=== PATIENT | female | born 1960 | race African-American/Black ===

== ENCOUNTER 2016-08-20 22:55 | Inpatient (IN) | payer MEDICAID, OTHER ==
[~2016-08-20] VITALS: Ht 167.6 cm; Wt 70.4 kg
[~2016-08-20 22:55] MED LIST: AMLO-512 PO; ASPI81TA42 PO; ATEN100T PO; HYDR25TA PO; LEVO75 PO
[2016-08-20] MEDS ORDERED: SODIUM CHLORIDE 0.9% 1,000 ML IV ONE (23:15)
[2016-08-20 23:29] LABS: BASOPHILS # (AUTO) 0.08 K/uL (0.00-0.20); BASOPHILS % (AUTO) 0.5 % (0.0-2.0); EOSINOPHILS # (AUTO) 0.13 K/uL (0.00-0.70); EOSINOPHILS % (AUTO) 0.82 % (1.0-6.0); HEMATOCRIT 50.4 % (36-46); HEMOGLOBIN 15.5 g/dL (12.0-16.0); LYMPHOCYTES # (AUTO) 3.5 K/uL (1.0-4.8); LYMPHOCYTES % (AUTO) 22.5 % (22.0-44.0); MEAN CORPUSCULAR HEMOGLOBIN 23.5 pg (26.0-34.0); MEAN CORPUSCULAR HGB CONC 30.9 G/dL (31.0-37.0); MEAN CORPUSCULAR VOLUME 76 fL (80-100); MONOCYTES # (AUTO) 0.6 K/uL (0.1-1.0); MONOCYTES % (AUTO) 3.6 % (2.0-9.0); NEUTROPHILS # (AUTO) 11.3 K/uL (1.8-7.7); NEUTROPHILS % (AUTO) 72.6 % (40.0-70.0); PLATELET COUNT (AUTO) 269 K/uL (150-450); RED BLOOD CELL COUNT(AUTO) 6.62 MIL/uL (4.00-5.20); RED CELL DISTRIBUTION WIDTH 14.3 % (11.5-14.5); WHITE BLOOD COUNT (AUTO) 15.6 K/uL (4.5-11.0)
[2016-08-20 23:40] LABS: PROTHROMBIN TIME 10.3 SEC (9.4-11.6)
[2016-08-20] MEDS ORDERED: ONDANSETRON HCL 4 MG/2 ML VIAL IVP ONE (23:45)
[2016-08-20] MEDS ORDERED: MECLIZINE HCL 25 MG TABLET PO ONE (23:45)
[2016-08-20 23:55] LABS: ALANINE AMINOTRANSFERASE 20 U/L (12-78); ALBUMIN 4.3 g/dL (3.4-5.0); ASPARTATE AMINOTRANSFERASE 20 U/L (15-37); BILIRUBIN,TOTAL 0.4 mg/dL (0.1-1.0); CALCIUM, TOTAL 9.7 mg/dL (8.8-10.5); CARBON DIOXIDE 27 mmol/L (22-29); CREATININE 0.87 mg/dL (0.60-1.30); GLOMERULAR FILTR. RATE CALC > 60 mL/min (>60); THYROID STIMULATING HORMONE 0.52 uIU/mL (0.36-3.74); UREA NITROGEN, BLOOD 11 mg/dL (7-18)
[2016-08-20 23:58] LABS: RBC MORPHOLOGY COMMENT ABNORMAL RBC MORPH
[2016-08-21 00:09] LABS: ANION GAP 15 mmol/L (8-16); CHLORIDE 100 mmol/L (98-107); SODIUM SERUM 142 mmol/L (136-145)
[2016-08-21 00:10] LABS: POTASSIUM 2.5 mmol/L (3.5-5.1)
[2016-08-21] MEDS ORDERED: POTASSIUM CHLORIDE 20 MEQ ER TABLET PO ONE (00:15)
[2016-08-21] MEDS: POTASSIUM CHL 10 MEQ/WATER 50 ML IV SCH ×4 (00:49→05:28)
[2016-08-21] MEDS ORDERED: SODIUM CHLORIDE 0.9% 1,000 ML IV ONE (01:45)
[2016-08-21] MEDS ORDERED: LEVOFLOXACIN 750 MG/D5% WATER 150 ML IV ONE (01:45)
[2016-08-21 02:17] LABS: APPEARANCE,URINE CLEAR (CLEAR); GLUCOSE, URINE (UA) NEGATIVE (NEGATIVE); KETONES,URINE NEGATIVE (NEGATIVE); LEUKOCYTE ESTERASE ,URINE TRACE (NEGATIVE); OCCULT BLOOD,URINE NEGATIVE (NEGATIVE); PH,URINE 7.5 (5.0-8.0); PROTEIN,URINE NEGATIVE (NEGATIVE)
[2016-08-21 02:18] LABS: ADD UA MICROSCOPIC YES
[2016-08-21 02:21] LABS: RBC,URINE 0-2 /HPF (0-2); SQUAMOUS EPITHELIAL CELL,UR Moderate /LPF (None Seen)
[2016-08-21] MEDS ORDERED: ASPIRIN 81 MG CHEWABLE TABLET PO ONE (02:45)
[2016-08-21] MEDS ORDERED: ACETAMINOPHEN 500 MG TABLET PO ONE (03:15)
[2016-08-21] MEDS ORDERED: MAGNESIUM HYDROXIDE SUSPENSION 30 ML UDCUP PO PRN (04:00)
[2016-08-21] MEDS ORDERED: OxyCODONE HCL/ACETAMINOPHEN 5-325 MG TABLET PO PRN (04:00)
[2016-08-21] MEDS ORDERED: ACETAMINOPHEN 325 MG TABLET PO PRN (04:00)
[2016-08-21] MEDS ORDERED: 0.9% SODIUM CHLORIDE 10 ML SYRINGE IVP PRN (04:00)
[2016-08-21] MEDS ORDERED: ONDANSETRON HCL 4 MG/2 ML VIAL IVP PRN (04:00)
[2016-08-21] MEDS ORDERED: SODIUM CHLORIDE 0.9% 500 ML IV ONE (05:45)
[2016-08-21] MEDS: LEVOTHYROXINE SODIUM 75 MCG TABLET PO SCH (06:30)
[2016-08-21 08:09] LABS: BASOPHILS % (AUTO) 0.7 % (0.0-2.0); EOSINOPHILS # (AUTO) 0.15 K/uL (0.00-0.70); EOSINOPHILS % (AUTO) 1.05 % (1.0-6.0); HEMATOCRIT 42.2 % (36-46); HEMOGLOBIN 12.9 g/dL (12.0-16.0); LYMPHOCYTES # (AUTO) 3.8 K/uL (1.0-4.8); LYMPHOCYTES % (AUTO) 27.3 % (22.0-44.0); MEAN CORPUSCULAR HEMOGLOBIN 23.3 pg (26.0-34.0); MEAN CORPUSCULAR HGB CONC 30.7 G/dL (31.0-37.0); MEAN CORPUSCULAR VOLUME 76 fL (80-100); MONOCYTES # (AUTO) 0.8 K/uL (0.1-1.0); MONOCYTES % (AUTO) 5.6 % (2.0-9.0); NEUTROPHILS # (AUTO) 9.1 K/uL (1.8-7.7); NEUTROPHILS % (AUTO) 65.4 % (40.0-70.0); PLATELET COUNT (AUTO) 250 K/uL (150-450); RED BLOOD CELL COUNT(AUTO) 5.54 MIL/uL (4.00-5.20); RED CELL DISTRIBUTION WIDTH 14.1 % (11.5-14.5); WHITE BLOOD COUNT (AUTO) 13.9 K/uL (4.5-11.0)
[2016-08-21 08:14] LABS: ANION GAP 9 mmol/L (8-16); CALCIUM, TOTAL 7.6 mg/dL (8.8-10.5); CARBON DIOXIDE 27 mmol/L (22-29); CHLORIDE 108 mmol/L (98-107); CREATININE 0.67 mg/dL (0.60-1.30); GLOMERULAR FILTR. RATE CALC > 60 mL/min (>60); POTASSIUM 3.5 mmol/L (3.5-5.1); SODIUM SERUM 144 mmol/L (136-145); UREA NITROGEN, BLOOD 6 mg/dL (7-18)
[2016-08-21] MEDS: DOCUSATE SODIUM 100 MG CAPSULE PO SCH ×2 (08:24→21:04)
[2016-08-21] MEDS: MECLIZINE HCL 25 MG TABLET PO SCH ×4 (08:24→21:04)
[2016-08-21] MEDS: AmLODIPine BESYLATE 10 MG TABLET PO SCH (08:24)
[2016-08-21] MEDS: PANTOPRAZOLE SODIUM 40 MG/VIAL IVP SCH (08:24)
[2016-08-21 08:25] LABS: RBC MORPHOLOGY COMMENT ABNORMAL RBC MORPH
[2016-08-21] MEDS: ASPIRIN 81 MG EC TABLET PO SCH (08:25)
[2016-08-21] MEDS: ATENOLOL 100 MG TABLET PO SCH (08:25)
[2016-08-21 11:31] VITALS: BP 117/71
[2016-08-21 14:18] VITALS: BP 114/70
[2016-08-21 17:09] VITALS: BP 116/64
[2016-08-21] MEDS: OxyCODONE HCL/ACETAMINOPHEN 5-325 MG TABLET PO PRN (17:54)
[2016-08-21] MEDS ORDERED: PNEUMOCOCCAL VACCINE POLYVALENT 0.5 ML VIAL [PPSV23] IM ONE (18:00)
[2016-08-21 21:45] VITALS: BP 103/55
[2016-08-21 23:31] VITALS: BP 124/60
[2016-08-22 02:40] VITALS: BP 123/65
[2016-08-22] MEDS: OxyCODONE HCL/ACETAMINOPHEN 5-325 MG TABLET PO PRN ×2 (02:44→09:56)
[2016-08-22 04:12] VITALS: BP 101/55
[2016-08-22] MEDS: LEVOTHYROXINE SODIUM 75 MCG TABLET PO SCH (06:00)
[2016-08-22 07:04] LABS: BASOPHILS # (AUTO) 0.06 K/uL (0.00-0.20); BASOPHILS % (AUTO) 0.5 % (0.0-2.0); EOSINOPHILS # (AUTO) 0.43 K/uL (0.00-0.70); HEMATOCRIT 42.1 % (36-46); HEMOGLOBIN 12.9 g/dL (12.0-16.0); LYMPHOCYTES # (AUTO) 4.4 K/uL (1.0-4.8); MEAN CORPUSCULAR HEMOGLOBIN 23.8 pg (26.0-34.0); MEAN CORPUSCULAR HGB CONC 30.7 G/dL (31.0-37.0); MEAN CORPUSCULAR VOLUME 77 fL (80-100); MONOCYTES # (AUTO) 0.9 K/uL (0.1-1.0); MONOCYTES % (AUTO) 7.1 % (2.0-9.0); NEUTROPHILS % (AUTO) 55.1 % (40.0-70.0); PLATELET COUNT (AUTO) 254 K/uL (150-450); RED BLOOD CELL COUNT(AUTO) 5.43 MIL/uL (4.00-5.20); RED CELL DISTRIBUTION WIDTH 14.3 % (11.5-14.5); WHITE BLOOD COUNT (AUTO) 12.8 K/uL (4.5-11.0)
[2016-08-22 07:50] VITALS: BP 103/69
[2016-08-22 07:56] LABS: CALCIUM, TOTAL 8.4 mg/dL (8.8-10.5); CREATININE 1.13 mg/dL (0.60-1.30); POTASSIUM 3.5 mmol/L (3.5-5.1)
[2016-08-22] MEDS: PANTOPRAZOLE SODIUM 40 MG/VIAL IVP SCH (09:05)
[2016-08-22] MEDS: ATENOLOL 100 MG TABLET PO SCH (09:52)
[2016-08-22] MEDS: DOCUSATE SODIUM 100 MG CAPSULE PO SCH (09:52)
[2016-08-22] MEDS: AmLODIPine BESYLATE 10 MG TABLET PO SCH (09:52)
[2016-08-22] MEDS: MECLIZINE HCL 25 MG TABLET PO SCH ×2 (09:52→12:02)
[2016-08-22] MEDS: ASPIRIN 81 MG EC TABLET PO SCH (09:53)
[2016-08-22 11:29] VITALS: BP 113/64
[2016-08-22] MEDS ORDERED: MECL12.585 PO (14:32)
== END 2016-08-22 14:52 | disposition home or self-care (01) | DRG 425 ==
LOC: EMS 22:56 → AHU 08-21 09:18 → 5N 08-21 16:03
PROVIDERS: ADMIT Internal Medicine; ATTEND Internal Medicine
PROC: 3E0234Z Introduction of Serum, Toxoid and Vaccine into Muscle, Percutaneous Approach (ICD-10-PCS; principal; 2016-08-22)
DX: E87.6 Hypokalemia (principal); J96.01 Acute respiratory failure with hypoxia; H81.10 Benign paroxysmal vertigo, unspecified ear; J44.9 Chronic obstructive pulmonary disease, unspecified; I10 Essential (primary) hypertension; E03.9 Hypothyroidism, unspecified; Z79.82 Long term (current) use of aspirin; Z79.899 Other long term (current) drug therapy; Z87.891 Personal history of nicotine dependence; Z88.0 Allergy status to penicillin; Z23 Encounter for immunization
CPT/HCPCS: 70450; 83735; 84443; 87040; 90471; 93005; 96361; 96365; 96375; 96376; 99285; C9113; G0480; J1956; J2405; J3480; J7030; J7040

== ENCOUNTER 2017-10-08 16:20 | Inpatient (IN) | payer MEDICARE, MEDICAID ==
[~2017-10-08] VITALS: Ht 152.4 cm; Wt 70.6 kg
[~2017-10-08 16:20] MED LIST changes: +MECL12.585 PO
[2017-10-08] MEDS ORDERED: BECL10.6 IH (16:26)
[2017-10-08] MEDS ORDERED: TIOT185 IH (16:26)
[2017-10-08] MEDS ORDERED: IPRATROPIUM BROMIDE 0.5 MG/2.5 ML NEB SOLUTION NEB ONE (16:30)
[2017-10-08] MEDS ORDERED: ALBUTEROL SULFATE 2.5 MG/0.5 ML NEB SOLUTION NEB ONE (16:30)
[2017-10-08 16:56] LABS: BASOPHILS % (AUTO) 1.4 % (0.0-2.0); EOSINOPHILS % (AUTO) 0.5 % (1.0-6.0); HEMATOCRIT 50.1 % (36-46); LYMPHOCYTES # (AUTO) 2.5 K/uL (1.0-4.8); LYMPHOCYTES % (AUTO) 24.6 % (22.0-44.0); MEAN CORPUSCULAR HEMOGLOBIN 23.5 pg (26.0-34.0); MEAN CORPUSCULAR HGB CONC 31.8 G/dL (31.0-37.0); MEAN CORPUSCULAR VOLUME 74 fL (80-100); MONOCYTES # (AUTO) 0.9 K/uL (0.1-1.0); MONOCYTES % (AUTO) 8.4 % (2.0-9.0); NEUTROPHILS # (AUTO) 6.7 K/uL (1.8-7.7); NEUTROPHILS % (AUTO) 65.1 % (40.0-70.0); RED BLOOD CELL COUNT(AUTO) 6.79 MIL/uL (4.00-5.20); RED CELL DISTRIBUTION WIDTH 18.5 % (11.5-14.5)
[2017-10-08 16:57] LABS: PLATELET COUNT (AUTO) 271 K/uL (150-450)
[2017-10-08 16:59] LABS: ANION GAP 10 mmol/L (8-16); CALCIUM, TOTAL 8.5 mg/dL (8.8-10.5); CARBON DIOXIDE 21 mmol/L (22-29); CHLORIDE 105 mmol/L (98-107); CREATININE 1.02 mg/dL (0.60-1.30); GLOMERULAR FILTR. RATE CALC > 60 mL/min (>60); GLUCOSE,RANDOM 102 mg/dL (70-110); POTASSIUM 3.1 mmol/L (3.5-5.1); SODIUM SERUM 136 mmol/L (136-145); UREA NITROGEN, BLOOD 21 mg/dL (7-18)
[2017-10-08 17:03] LABS: INR 1.2 (0.9-1.1); PROTHROMBIN TIME 12.1 SEC (9.4-11.6)
[2017-10-08 17:06] LABS: ALANINE AMINOTRANSFERASE 55 U/L (12-78); ALBUMIN 3.4 g/dL (3.4-5.0); ALKALINE PHOSPHATASE 126 U/L (46-116); ASPARTATE AMINOTRANSFERASE 58 U/L (15-37); BILIRUBIN,TOTAL 1.6 mg/dL (0.1-1.0); TOTAL PROTEIN, SERUM 7.4 g/dL (6.4-8.2)
[2017-10-08 17:17] LABS: B-TYPE NATRIURETIC PEPTIDE 726 pg/mL (0-100); PLATELET MORPHOLOGY COMMENT GIANT PLTS PRESENT
[2017-10-08 17:19] LABS: ABG A-A DIFF O2 276.1 mmHg (10-20.0); ABG BASE EXCESS -2.4 mmol/L (-2.0-3.0); ABG CARBOXYHEMOGLOBIN 3.4 % (0.0-1.5); ABG HCO3 23.5 mmol/L (22.0-26.0); ABG METHEMOGLOBIN 0.6 % (0.0-1.5); ABG OXYGEN CONTENT 18.8 mL/dL (15.0-23.0); ABG OXYGEN SATURATION 85.7 % (95.0-98.0); ABG OXYHEMOGLOBIN 82.3 % (94.0-100.0); ABG PCO2 27 mmHg (35-45); ABG PH 7.498 (7.35-7.450); ABG TOTAL HEMOGLOBIN 16.3 G/dL (12.0-18.0); PO2, ARTERIAL BG 49.9 mmHg (84.0-92.0); SOURCE, BLOOD GAS ARTERIAL; TEMPERATURE, FAHRENHEIT, BG 98.1 FAHREN (96.0-98.6)
[2017-10-08 17:20] LABS: O2 DEVICE,BLOOD GAS OXYMIZER (ROOM AIR); SITE, BLOOD GAS RT RADIAL
[2017-10-08] MEDS ORDERED: FUROSEMIDE 40 MG/4 ML VIAL IVP ONE (17:30)
[2017-10-08] MEDS ORDERED: SODIUM CHLORIDE 0.9% 100 ML ONE (20:24)
[2017-10-08] MEDS ORDERED: IOVERSOL 350 MG/ML 100 ML VIAL ONE (20:24)
[2017-10-08] MEDS ORDERED: POTASSIUM CHL 10 MEQ/WATER 50 ML IV PRN (20:45)
[2017-10-08] MEDS ORDERED: MECLIZINE HCL 12.5 MG TABLET PO PRN (20:45)
[2017-10-08] MEDS ORDERED: MORPHINE SULFATE 2 MG/ML SYRINGE IVP PRN (20:45)
[2017-10-08] MEDS ORDERED: MAGNESIUM SULFATE 4 GM/WATER 100 ML IV PRN (20:45)
[2017-10-08] MEDS ORDERED: POTASSIUM CHLORIDE 20 MEQ ER TABLET PO PRN (20:45)
[2017-10-08] MEDS ORDERED: BISACODYL 10 MG RECTAL RECTAL SUPPOSITORY PR PRN (20:45)
[2017-10-08] MEDS ORDERED: ONDANSETRON HCL 4 MG/2 ML VIAL IVP PRN (20:45)
[2017-10-08] MEDS ORDERED: ALBUTEROL SULFATE 2.5 MG/0.5 ML NEB SOLUTION NEB SCH (20:45)
[2017-10-08] MEDS ORDERED: ZOLPIDEM TARTRATE 5 MG TABLET PO PRN (20:45)
[2017-10-08] MEDS ORDERED: MAGNESIUM SULFATE 2 GM/WATER 50 ML IV PRN (20:45)
[2017-10-08] MEDS ORDERED: IPRATROPIUM BROMIDE 0.5 MG/2.5 ML NEB SOLUTION NEB SCH (20:45)
[2017-10-08 22:25] VITALS: BP 140/95
[2017-10-08] MEDS: BECLOMETHASONE DIPR HFA 40 MCG/PUFF 10.6 GM INHALER IH SCH (23:05)
[2017-10-08] MEDS: HEPARIN SODIUM,PORCINE 5,000 UNITS/ML VIAL SQ SCH (23:06)
[2017-10-08 23:07] VITALS: BP 141/96
[2017-10-08 23:22] VITALS: BP 148/86
[2017-10-09] VITALS (10 sets, daily range): BP systolic 98–150; BP diastolic 70–92
[2017-10-09] MEDS: ALBUTEROL SULFATE 2.5 MG/0.5 ML NEB SOLUTION NEB SCH ×4 (01:39→20:16)
[2017-10-09] MEDS: IPRATROPIUM BROMIDE 0.5 MG/2.5 ML NEB SOLUTION NEB SCH ×4 (01:39→20:16)
[2017-10-09] MEDS: MORPHINE SULFATE 2 MG/ML SYRINGE IVP PRN (05:03)
[2017-10-09 05:29] LABS: BASOPHILS % (AUTO) 0.6 % (0.0-2.0); EOSINOPHILS % (AUTO) 0.8 % (1.0-6.0); HEMATOCRIT 48.7 % (36-46); HEMOGLOBIN 15.5 g/dL (12.0-16.0); LYMPHOCYTES # (AUTO) 2.5 K/uL (1.0-4.8); LYMPHOCYTES % (AUTO) 24.1 % (22.0-44.0); MEAN CORPUSCULAR HEMOGLOBIN 23.4 pg (26.0-34.0); MEAN CORPUSCULAR HGB CONC 31.8 G/dL (31.0-37.0); MEAN CORPUSCULAR VOLUME 74 fL (80-100); MONOCYTES # (AUTO) 0.7 K/uL (0.1-1.0); MONOCYTES % (AUTO) 6.6 % (2.0-9.0); NEUTROPHILS % (AUTO) 67.9 % (40.0-70.0); PLATELET COUNT (AUTO) 237 K/uL (150-450); RED CELL DISTRIBUTION WIDTH 18.3 % (11.5-14.5)
[2017-10-09] MEDS: LEVOTHYROXINE SODIUM 75 MCG TABLET PO SCH (05:40)
[2017-10-09 05:50] LABS: ALANINE AMINOTRANSFERASE 44 U/L (12-78); ALBUMIN 3.1 g/dL (3.4-5.0); ALKALINE PHOSPHATASE 104 U/L (46-116); ANION GAP 10 mmol/L (8-16); ASPARTATE AMINOTRANSFERASE 38 U/L (15-37); BILIRUBIN,TOTAL 1.4 mg/dL (0.1-1.0); CALCIUM, TOTAL 7.9 mg/dL (8.8-10.5); CARBON DIOXIDE 26 mmol/L (22-29); CHLORIDE 103 mmol/L (98-107); CREATININE 1.04 mg/dL (0.60-1.30); GLOMERULAR FILTR. RATE CALC > 60 mL/min (>60); GLUCOSE,RANDOM 94 mg/dL (70-110); PHOSPHORUS 4.5 mg/dL (2.5-4.9); SODIUM SERUM 139 mmol/L (136-145); UREA NITROGEN, BLOOD 16 mg/dL (7-18)
[2017-10-09 06:49] LABS: POTASSIUM 2.9 mmol/L (3.5-5.1)
[2017-10-09] MEDS ORDERED: SODIUM CHLORIDE 0.9% 100 ML ONE (06:53)
[2017-10-09] MEDS: PANTOPRAZOLE SODIUM 40 MG DR TABLET PO SCH (08:34)
[2017-10-09] MEDS: OxyCODONE HCL/ACETAMINOPHEN 5-325 MG TABLET PO PRN ×2 (08:34→19:49)
[2017-10-09] MEDS: HEPARIN SODIUM,PORCINE 5,000 UNITS/ML VIAL SQ SCH ×2 (08:35→20:07)
[2017-10-09] MEDS: ASPIRIN 81 MG EC TABLET PO SCH (08:35)
[2017-10-09] MEDS: AmLODIPine BESYLATE 10 MG TABLET PO SCH (08:35)
[2017-10-09] MEDS: MAGNESIUM OXIDE 400 MG TABLET PO PRN (08:35)
[2017-10-09] MEDS: BECLOMETHASONE DIPR HFA 40 MCG/PUFF 10.6 GM INHALER IH SCH ×2 (08:36→20:08)
[2017-10-09] MEDS: TIOTROPIUM BROMIDE 18 MCG/INH HANDIHALER [5] IH SCH (08:36)
[2017-10-09] MEDS ORDERED: ATENOLOL 100 MG TABLET PO SCH (09:00)
[2017-10-09] MEDS ORDERED: FUROSEMIDE 20 MG/2 ML VIAL IVP SCH (09:00)
[2017-10-09] MEDS ORDERED: HYDROCHLOROTHIAZIDE 25 MG TABLET PO SCH (09:00)
[2017-10-09 09:15] LABS: PLATELET MORPHOLOGY COMMENT GIANT PLTS PRESENT
[2017-10-09] MEDS ORDERED: POTASSIUM CHLORIDE 20 MEQ ER TABLET PO ONE (10:00)
[2017-10-09] MEDS: MethylPREDNISolone SOD SUCC 125 MG/2 ML VIAL IVP SCH ×2 (11:52→18:17)
[2017-10-09 23:13] LABS: SOURCE, BLOOD GAS ARTERIAL; TEMPERATURE, FAHRENHEIT, BG 98.5 FAHREN (96.0-98.6)
[2017-10-09 23:21] LABS: ABG A-A DIFF O2 398.9 mmHg (10-20.0); ABG BASE EXCESS -5.8 mmol/L (-2.0-3.0); ABG CARBOXYHEMOGLOBIN 2.4 % (0.0-1.5); ABG HCO3 20.9 mmol/L (22.0-26.0); ABG METHEMOGLOBIN 0.3 % (0.0-1.5); ABG OXYGEN CONTENT 20.6 mL/dL (15.0-23.0); ABG OXYGEN SATURATION 93.7 % (95.0-98.0); ABG OXYHEMOGLOBIN 91.2 % (94.0-100.0); ABG PCO2 29 mmHg (35-45); ABG PH 7.422 (7.35-7.450); ABG TOTAL HEMOGLOBIN 16.1 G/dL (12.0-18.0); PO2, ARTERIAL BG 68.9 mmHg (84.0-92.0)
[2017-10-09 23:22] LABS: O2 DEVICE,BLOOD GAS BIPAP (ROOM AIR); SITE, BLOOD GAS RT RADIAL; SPONTANEOUS VT, BG 920 ml
[2017-10-10] VITALS (9 sets, daily range): BP systolic 110–126; BP diastolic 43–85
[2017-10-10] MEDS: MethylPREDNISolone SOD SUCC 125 MG/2 ML VIAL IVP SCH ×5 (00:25→23:40)
[2017-10-10] MEDS: ALBUTEROL SULFATE 2.5 MG/0.5 ML NEB SOLUTION NEB SCH ×4 (02:09→20:13)
[2017-10-10] MEDS: IPRATROPIUM BROMIDE 0.5 MG/2.5 ML NEB SOLUTION NEB SCH ×4 (02:09→20:14)
[2017-10-10] MEDS: OxyCODONE HCL/ACETAMINOPHEN 5-325 MG TABLET PO PRN (02:13)
[2017-10-10 05:38] LABS: BASOPHILS % (AUTO) 0.1 % (0.0-2.0); EOSINOPHILS % (AUTO) 0 % (1.0-6.0); HEMATOCRIT 48.2 % (36-46); HEMOGLOBIN 15.1 g/dL (12.0-16.0); LYMPHOCYTES % (AUTO) 13.2 % (22.0-44.0); MEAN CORPUSCULAR HEMOGLOBIN 23.4 pg (26.0-34.0); MEAN CORPUSCULAR HGB CONC 31.4 G/dL (31.0-37.0); MEAN CORPUSCULAR VOLUME 75 fL (80-100); MONOCYTES # (AUTO) 0.1 K/uL (0.1-1.0); MONOCYTES % (AUTO) 1.3 % (2.0-9.0); NEUTROPHILS # (AUTO) 6.4 K/uL (1.8-7.7); RED BLOOD CELL COUNT(AUTO) 6.46 MIL/uL (4.00-5.20); RED CELL DISTRIBUTION WIDTH 18.7 % (11.5-14.5)
[2017-10-10 05:45] LABS: ALBUMIN 3.3 g/dL (3.4-5.0); BILIRUBIN,TOTAL 1.4 mg/dL (0.1-1.0); CREATININE 1.31 mg/dL (0.60-1.30); POTASSIUM 4.7 mmol/L (3.5-5.1); TOTAL PROTEIN, SERUM 7.3 g/dL (6.4-8.2)
[2017-10-10] MEDS: LEVOTHYROXINE SODIUM 75 MCG TABLET PO SCH (05:59)
[2017-10-10 06:02] LABS: NEUTROPHILS % (AUTO) 85.4 % (40.0-70.0)
[2017-10-10 07:55] LABS: PLATELET COUNT (AUTO) 273 K/uL (150-450)
[2017-10-10 07:56] LABS: PLATELET MORPHOLOGY COMMENT GIANT PLTS PRESENT
[2017-10-10] MEDS ORDERED: ATENOLOL 100 MG TABLET PO SCH (09:00)
[2017-10-10] MEDS ORDERED: ATENOLOL 50 MG TABLET PO SCH (09:00)
[2017-10-10] MEDS ORDERED: CALCIUM CARBONATE 500 MG CHEWABLE TABLET CHEW PRN (09:15)
[2017-10-10] MEDS: BECLOMETHASONE DIPR HFA 40 MCG/PUFF 10.6 GM INHALER IH SCH ×2 (09:46→21:00)
[2017-10-10] MEDS: FLUTICASONE/VILANTEROL 200-25 MCG/INH INHALER [14] IH SCH (09:47)
[2017-10-10] MEDS: TIOTROPIUM BROMIDE 18 MCG/INH HANDIHALER [5] IH SCH (09:47)
[2017-10-10] MEDS: HEPARIN SODIUM,PORCINE 5,000 UNITS/ML VIAL SQ SCH ×2 (09:48→21:00)
[2017-10-10] MEDS: AmLODIPine BESYLATE 10 MG TABLET PO SCH (09:49)
[2017-10-10] MEDS: ASPIRIN 81 MG EC TABLET PO SCH (09:49)
[2017-10-10] MEDS: PANTOPRAZOLE SODIUM 40 MG DR TABLET PO SCH (09:50)
[2017-10-10] MEDS: LIDOCAINE HCL 5% TRANSDERMAL PATCH TD SCH (10:19)
[2017-10-10] MEDS: AZITHROMYCIN 500 MG/NS 250 ML IV SCH (10:20)
[2017-10-10] MEDS: MORPHINE SULFATE 2 MG/ML SYRINGE IVP PRN (11:53)
[2017-10-10] MEDS ORDERED: SODIUM CHLORIDE 0.9% 250 ML IV ONE (16:05)
[2017-10-10] MEDS: -LIDODERM PATCH NOTE- MISC SCH (21:00)
[2017-10-11] VITALS (9 sets, daily range): BP systolic 104–138; BP diastolic 49–88
[2017-10-11] MEDS: ALBUTEROL SULFATE 2.5 MG/0.5 ML NEB SOLUTION NEB SCH ×4 (01:38→19:35)
[2017-10-11] MEDS: IPRATROPIUM BROMIDE 0.5 MG/2.5 ML NEB SOLUTION NEB SCH ×4 (01:38→19:35)
[2017-10-11 05:17] LABS: BASOPHILS % (AUTO) 0.1 % (0.0-2.0); EOSINOPHILS % (AUTO) 0 % (1.0-6.0); HEMATOCRIT 47.7 % (36-46); HEMOGLOBIN 14.9 g/dL (12.0-16.0); LYMPHOCYTES # (AUTO) 0.8 K/uL (1.0-4.8); LYMPHOCYTES % (AUTO) 4.6 % (22.0-44.0); MEAN CORPUSCULAR HEMOGLOBIN 23.1 pg (26.0-34.0); MEAN CORPUSCULAR HGB CONC 31.2 G/dL (31.0-37.0); MEAN CORPUSCULAR VOLUME 74 fL (80-100); MONOCYTES # (AUTO) 0.6 K/uL (0.1-1.0); MONOCYTES % (AUTO) 3.2 % (2.0-9.0); NEUTROPHILS # (AUTO) 16.1 K/uL (1.8-7.7); PLATELET COUNT (AUTO) 252 K/uL (150-450); RED BLOOD CELL COUNT(AUTO) 6.44 MIL/uL (4.00-5.20); RED CELL DISTRIBUTION WIDTH 18.6 % (11.5-14.5)
[2017-10-11 05:30] LABS: ALBUMIN 3.4 g/dL (3.4-5.0); BILIRUBIN,TOTAL 1.2 mg/dL (0.1-1.0); CALCIUM, TOTAL 7.9 mg/dL (8.8-10.5); CREATININE 1.45 mg/dL (0.60-1.30); MAGNESIUM 2.2 mg/dL (1.80-2.40); POTASSIUM 4.4 mmol/L (3.5-5.1); TOTAL PROTEIN, SERUM 7.1 g/dL (6.4-8.2)
[2017-10-11] MEDS: MethylPREDNISolone SOD SUCC 125 MG/2 ML VIAL IVP SCH ×3 (06:05→18:01)
[2017-10-11] MEDS: LEVOTHYROXINE SODIUM 75 MCG TABLET PO SCH (06:08)
[2017-10-11 06:17] LABS: NEUTROPHILS % (AUTO) 92.1 % (40.0-70.0)
[2017-10-11] MEDS: NITROGLYCERIN 2% (1 GM=INCH) PACKET TP SCH ×2 (08:28→16:32)
[2017-10-11] MEDS: PANTOPRAZOLE SODIUM 40 MG DR TABLET PO SCH (08:29)
[2017-10-11] MEDS: AmLODIPine BESYLATE 10 MG TABLET PO SCH (08:29)
[2017-10-11] MEDS: LIDOCAINE HCL 5% TRANSDERMAL PATCH TD SCH (08:29)
[2017-10-11] MEDS: ASPIRIN 81 MG EC TABLET PO SCH (08:29)
[2017-10-11] MEDS: BECLOMETHASONE DIPR HFA 40 MCG/PUFF 10.6 GM INHALER IH SCH ×2 (08:35→20:59)
[2017-10-11] MEDS: HEPARIN SODIUM,PORCINE 5,000 UNITS/ML VIAL SQ SCH ×2 (08:35→20:58)
[2017-10-11] MEDS: TIOTROPIUM BROMIDE 18 MCG/INH HANDIHALER [5] IH SCH (08:36)
[2017-10-11] MEDS: FLUTICASONE/VILANTEROL 200-25 MCG/INH INHALER [14] IH SCH (08:36)
[2017-10-11] MEDS: AZITHROMYCIN 500 MG/NS 250 ML IV SCH (10:05)
[2017-10-11] MEDS: ATENOLOL 25 MG TABLET PO SCH (10:05)
[2017-10-11 12:01] LABS: ABG A-A DIFF O2 624.4 mmHg (10-20.0); ABG BASE EXCESS -21.6 mmol/L (-2.0-3.0); ABG CARBOXYHEMOGLOBIN 1.4 % (0.0-1.5); ABG METHEMOGLOBIN 0.4 % (0.0-1.5); ABG OXYGEN CONTENT 17.7 mL/dL (15.0-23.0); ABG OXYGEN SATURATION 76.7 % (95.0-98.0); ABG OXYHEMOGLOBIN 75.3 % (94.0-100.0); ABG PCO2 29 mmHg (35-45); ABG PH 7.079 (7.35-7.450); ABG TOTAL HEMOGLOBIN 16.7 G/dL (12.0-18.0); O2 DEVICE,BLOOD GAS BIPAP (ROOM AIR); PO2, ARTERIAL BG 59.6 mmHg (84.0-92.0); SITE, BLOOD GAS LFT RADIAL; SOURCE, BLOOD GAS ARTERIAL; TEMPERATURE, FAHRENHEIT, BG 98.6 FAHREN (96.0-98.6)
[2017-10-11] MEDS ORDERED: SODIUM BICARBONATE [ADULT] 8.4% 50 MEQ/50 ML SYRINGE IVP ONE (12:15)
[2017-10-11] MEDS: ACETAMINOPHEN 325 MG TABLET PO PRN (13:33)
[2017-10-11 14:45] LABS: ABG A-A DIFF O2 375.5 mmHg (10-20.0); ABG BASE EXCESS -4.3 mmol/L (-2.0-3.0); ABG CARBOXYHEMOGLOBIN 2.3 % (0.0-1.5); ABG HCO3 21.7 mmol/L (22.0-26.0); ABG METHEMOGLOBIN 0.5 % (0.0-1.5); ABG OXYGEN CONTENT 21.3 mL/dL (15.0-23.0); ABG OXYGEN SATURATION 96.6 % (95.0-98.0); ABG OXYHEMOGLOBIN 93.9 % (94.0-100.0); ABG PCO2 34 mmHg (35-45); ABG PH 7.402 (7.35-7.450); ABG TOTAL HEMOGLOBIN 16.1 G/dL (12.0-18.0); O2 DEVICE,BLOOD GAS BIPAP (ROOM AIR); PO2, ARTERIAL BG 87.4 mmHg (84.0-92.0); SITE, BLOOD GAS LFT RADIAL; SOURCE, BLOOD GAS ARTERIAL; SPONTANEOUS VT, BG 450 ml; TEMPERATURE, FAHRENHEIT, BG 98.6 FAHREN (96.0-98.6)
[2017-10-11 15:42] LABS: CALCIUM, TOTAL 7.6 mg/dL (8.8-10.5); CREATININE 1.6 mg/dL (0.60-1.30); POTASSIUM 4.3 mmol/L (3.5-5.1)
[2017-10-11 15:46] LABS: MAGNESIUM 2.4 mg/dL (1.80-2.40); PHOSPHORUS 6.4 mg/dL (2.5-4.9)
[2017-10-11] MEDS ORDERED: SODIUM CHLORIDE 0.9% 250 ML IV ONE (16:31)
[2017-10-11 16:38] LABS: LACTIC ACID 3.4 mmol/L (0.4-2.0)
[2017-10-11 20:37] LABS: APPEARANCE,URINE CLOUDY (CLEAR); BILIRUBIN,URINE NEGATIVE (NEGATIVE); GLUCOSE, URINE (UA) NEGATIVE (NEGATIVE); KETONES,URINE NEGATIVE (NEGATIVE); LEUKOCYTE ESTERASE ,URINE MODERATE (NEGATIVE); NITRATE,URINE NEGATIVE (NEGATIVE); OCCULT BLOOD,URINE SMALL (NEGATIVE); PH,URINE 5.5 (5.0-8.0); PROTEIN,URINE SEE CONFIRM (NEGATIVE); UROBILINOGEN,URINE 0.2 mg/dL (<=1.0)
[2017-10-11 20:38] LABS: SODIUM,URINE RANDOM 5 mmol/l (20-110)
[2017-10-11 20:43] LABS: CHLORIDE,URINE RANDOM 48 mmol/L (55-125); POTASSIUM,URINE RANDOM 110 mmol/L (12-75)
[2017-10-11] MEDS: -LIDODERM PATCH NOTE- MISC SCH (20:59)
[2017-10-11 21:06] LABS: SULFOSALICYLIC ACID,URINE 2+ (Negative)
[2017-10-11 21:07] LABS: BACTERIA,URINE Moderate /HPF (None Seen); RENAL EPITHELIAL CELLS,URINE Few /LPF (None Seen); SQUAMOUS EPITHELIAL CELL,UR Many /LPF (None Seen); WBC,URINE 51-100 /HPF (0-5)
[2017-10-12] VITALS: BP 136/79
[2017-10-12] MEDS: MethylPREDNISolone SOD SUCC 125 MG/2 ML VIAL IVP SCH ×5 (00:09→23:51)
[2017-10-12] MEDS: NITROGLYCERIN 2% (1 GM=INCH) PACKET TP SCH ×4 (00:09→23:51)
[2017-10-12] MEDS: MAGNESIUM HYDROXIDE SUSPENSION 30 ML UDCUP PO PRN (00:45)
[2017-10-12] MEDS: ALBUTEROL SULFATE 2.5 MG/0.5 ML NEB SOLUTION NEB SCH ×4 (02:35→19:47)
[2017-10-12] MEDS: IPRATROPIUM BROMIDE 0.5 MG/2.5 ML NEB SOLUTION NEB SCH ×4 (02:35→19:48)
[2017-10-12 04:00] VITALS: BP 121/75
[2017-10-12 05:17] LABS: BASOPHILS % (AUTO) 0.2 % (0.0-2.0); EOSINOPHILS % (AUTO) 0 % (1.0-6.0); HEMATOCRIT 45.6 % (36-46); HEMOGLOBIN 14.3 g/dL (12.0-16.0); LYMPHOCYTES # (AUTO) 0.7 K/uL (1.0-4.8); LYMPHOCYTES % (AUTO) 4.8 % (22.0-44.0); MEAN CORPUSCULAR HEMOGLOBIN 22.9 pg (26.0-34.0); MEAN CORPUSCULAR HGB CONC 31.4 G/dL (31.0-37.0); MEAN CORPUSCULAR VOLUME 73 fL (80-100); MONOCYTES # (AUTO) 0.7 K/uL (0.1-1.0); MONOCYTES % (AUTO) 4.5 % (2.0-9.0); PLATELET COUNT (AUTO) 236 K/uL (150-450); RED BLOOD CELL COUNT(AUTO) 6.24 MIL/uL (4.00-5.20); RED CELL DISTRIBUTION WIDTH 18.1 % (11.5-14.5)
[2017-10-12 05:20] LABS: NEUTROPHILS % (AUTO) 90.5 % (40.0-70.0)
[2017-10-12 05:27] LABS: ALBUMIN 3.3 g/dL (3.4-5.0); BILIRUBIN,TOTAL 1.2 mg/dL (0.1-1.0); CALCIUM, TOTAL 7.9 mg/dL (8.8-10.5); CREATININE 1.42 mg/dL (0.60-1.30); MAGNESIUM 2.6 mg/dL (1.80-2.40); POTASSIUM 3.9 mmol/L (3.5-5.1); TOTAL PROTEIN, SERUM 6.7 g/dL (6.4-8.2)
[2017-10-12] MEDS: LEVOTHYROXINE SODIUM 75 MCG TABLET PO SCH (06:12)
[2017-10-12 07:37] LABS: PLATELET MORPHOLOGY COMMENT GIANT PLTS PRESENT
[2017-10-12 08:00] VITALS: BP 119/80
[2017-10-12] MEDS: BECLOMETHASONE DIPR HFA 40 MCG/PUFF 10.6 GM INHALER IH SCH ×2 (08:43→20:59)
[2017-10-12] MEDS: FLUTICASONE/VILANTEROL 200-25 MCG/INH INHALER [14] IH SCH (08:43)
[2017-10-12] MEDS: TIOTROPIUM BROMIDE 18 MCG/INH HANDIHALER [5] IH SCH (08:43)
[2017-10-12] MEDS: ASPIRIN 81 MG EC TABLET PO SCH (08:44)
[2017-10-12] MEDS: PANTOPRAZOLE SODIUM 40 MG DR TABLET PO SCH (08:44)
[2017-10-12] MEDS: AmLODIPine BESYLATE 10 MG TABLET PO SCH (08:44)
[2017-10-12] MEDS: ATENOLOL 25 MG TABLET PO SCH (08:45)
[2017-10-12] MEDS: HEPARIN SODIUM,PORCINE 5,000 UNITS/ML VIAL SQ SCH ×2 (08:45→21:00)
[2017-10-12] MEDS: LIDOCAINE HCL 5% TRANSDERMAL PATCH TD SCH (08:45)
[2017-10-12 12:00] VITALS: BP 96/38
[2017-10-12] MEDS: AZITHROMYCIN 500 MG/NS 250 ML IV SCH (12:51)
[2017-10-12 16:00] VITALS: BP 108/66
[2017-10-12 20:00] VITALS: BP 104/70
[2017-10-12] MEDS: -LIDODERM PATCH NOTE- MISC SCH (21:00)
[2017-10-13] VITALS: BP 118/85
[2017-10-13] MEDS: IPRATROPIUM BROMIDE 0.5 MG/2.5 ML NEB SOLUTION NEB SCH ×4 (02:32→20:26)
[2017-10-13] MEDS: ALBUTEROL SULFATE 2.5 MG/0.5 ML NEB SOLUTION NEB SCH ×4 (02:32→20:26)
[2017-10-13 04:00] VITALS: BP 127/84
[2017-10-13] MEDS: LEVOTHYROXINE SODIUM 75 MCG TABLET PO SCH (06:51)
[2017-10-13] MEDS: MethylPREDNISolone SOD SUCC 125 MG/2 ML VIAL IVP SCH ×3 (06:51→18:37)
[2017-10-13 08:00] VITALS: BP 125/94
[2017-10-13] MEDS: NITROGLYCERIN 2% (1 GM=INCH) PACKET TP SCH (08:54)
[2017-10-13] MEDS: HEPARIN SODIUM,PORCINE 5,000 UNITS/ML VIAL SQ SCH ×2 (08:54→21:00)
[2017-10-13] MEDS: ASPIRIN 81 MG EC TABLET PO SCH (08:55)
[2017-10-13] MEDS: AmLODIPine BESYLATE 10 MG TABLET PO SCH (08:55)
[2017-10-13] MEDS: PANTOPRAZOLE SODIUM 40 MG DR TABLET PO SCH (08:56)
[2017-10-13] MEDS: LIDOCAINE HCL 5% TRANSDERMAL PATCH TD SCH (08:56)
[2017-10-13] MEDS: ATENOLOL 25 MG TABLET PO SCH (08:56)
[2017-10-13] MEDS: BECLOMETHASONE DIPR HFA 40 MCG/PUFF 10.6 GM INHALER IH SCH ×2 (08:57→21:39)
[2017-10-13] MEDS: TIOTROPIUM BROMIDE 18 MCG/INH HANDIHALER [5] IH SCH (08:58)
[2017-10-13] MEDS: FLUTICASONE/VILANTEROL 200-25 MCG/INH INHALER [14] IH SCH (08:58)
[2017-10-13] MEDS: AZITHROMYCIN 500 MG/NS 250 ML IV SCH (10:58)
[2017-10-13 12:00] VITALS: BP 125/66
[2017-10-13] MEDS: MAGNESIUM HYDROXIDE SUSPENSION 30 ML UDCUP PO PRN (12:52)
[2017-10-13 16:00] VITALS: BP 114/81
[2017-10-13 20:00] VITALS: BP 101/56
[2017-10-13] MEDS: -LIDODERM PATCH NOTE- MISC SCH (21:39)
[2017-10-14] VITALS (8 sets, daily range): BP systolic 110–123; BP diastolic 64–80
[2017-10-14] MEDS: MethylPREDNISolone SOD SUCC 125 MG/2 ML VIAL IVP SCH ×5 (00:05→23:58)
[2017-10-14] MEDS: ACETAMINOPHEN 325 MG TABLET PO PRN ×2 (00:59→12:32)
[2017-10-14] MEDS: ALBUTEROL SULFATE 2.5 MG/0.5 ML NEB SOLUTION NEB SCH ×4 (01:58→19:45)
[2017-10-14] MEDS: IPRATROPIUM BROMIDE 0.5 MG/2.5 ML NEB SOLUTION NEB SCH ×4 (01:58→19:45)
[2017-10-14 05:30] LABS: EOSINOPHILS % (AUTO) 0 % (1.0-6.0); HEMATOCRIT 46.8 % (36-46); HEMOGLOBIN 14.8 g/dL (12.0-16.0); LYMPHOCYTES # (AUTO) 0.8 K/uL (1.0-4.8); LYMPHOCYTES % (AUTO) 5.4 % (22.0-44.0); MEAN CORPUSCULAR HGB CONC 31.7 G/dL (31.0-37.0); MEAN CORPUSCULAR VOLUME 73 fL (80-100); MONOCYTES # (AUTO) 0.7 K/uL (0.1-1.0); NEUTROPHILS # (AUTO) 13.2 K/uL (1.8-7.7); PLATELET COUNT (AUTO) 220 K/uL (150-450); RED BLOOD CELL COUNT(AUTO) 6.45 MIL/uL (4.00-5.20); RED CELL DISTRIBUTION WIDTH 18.1 % (11.5-14.5)
[2017-10-14 05:32] LABS: CALCIUM, TOTAL 7.9 mg/dL (8.8-10.5); CREATININE 1.12 mg/dL (0.60-1.30); POTASSIUM 4.6 mmol/L (3.5-5.1)
[2017-10-14 05:35] LABS: NEUTROPHILS % (AUTO) 89.6 % (40.0-70.0)
[2017-10-14] MEDS: LEVOTHYROXINE SODIUM 75 MCG TABLET PO SCH (06:40)
[2017-10-14] MEDS: ASPIRIN 81 MG EC TABLET PO SCH (09:27)
[2017-10-14] MEDS: PANTOPRAZOLE SODIUM 40 MG DR TABLET PO SCH (09:27)
[2017-10-14] MEDS: LIDOCAINE HCL 5% TRANSDERMAL PATCH TD SCH (09:27)
[2017-10-14] MEDS: ATENOLOL 25 MG TABLET PO SCH (09:27)
[2017-10-14] MEDS: AmLODIPine BESYLATE 10 MG TABLET PO SCH (09:27)
[2017-10-14] MEDS: BECLOMETHASONE DIPR HFA 40 MCG/PUFF 10.6 GM INHALER IH SCH ×2 (09:28→21:05)
[2017-10-14] MEDS: HEPARIN SODIUM,PORCINE 5,000 UNITS/ML VIAL SQ SCH ×3 (09:28→21:06)
[2017-10-14] MEDS: TIOTROPIUM BROMIDE 18 MCG/INH HANDIHALER [5] IH SCH (09:29)
[2017-10-14] MEDS: FLUTICASONE/VILANTEROL 200-25 MCG/INH INHALER [14] IH SCH (09:30)
[2017-10-14] MEDS: AZITHROMYCIN 500 MG/NS 250 ML IV SCH (10:22)
[2017-10-14 20:59] LABS: CREATININE,URINE RANDOM 132.1 mg/dL (30.0-125.0)
[2017-10-14] MEDS: -LIDODERM PATCH NOTE- MISC SCH (21:12)
[2017-10-15] VITALS (7 sets, daily range): BP systolic 111–130; BP diastolic 75–85
[2017-10-15] MEDS: ALBUTEROL SULFATE 2.5 MG/0.5 ML NEB SOLUTION NEB SCH ×4 (02:03→19:51)
[2017-10-15] MEDS: IPRATROPIUM BROMIDE 0.5 MG/2.5 ML NEB SOLUTION NEB SCH ×4 (02:03→19:51)
[2017-10-15 06:20] LABS: ANION GAP 7 mmol/L (8-16); CARBON DIOXIDE 27 mmol/L (22-29); CHLORIDE 101 mmol/L (98-107); CREATININE 1.04 mg/dL (0.60-1.30); EOSINOPHILS % (AUTO) 0 % (1.0-6.0); GLOMERULAR FILTR. RATE CALC > 60 mL/min (>60); GLUCOSE,RANDOM 164 mg/dL (70-110); HEMATOCRIT 44.5 % (36-46); HEMOGLOBIN 14.3 g/dL (12.0-16.0); LYMPHOCYTES # (AUTO) 0.4 K/uL (1.0-4.8); LYMPHOCYTES % (AUTO) 2.8 % (22.0-44.0); MEAN CORPUSCULAR HEMOGLOBIN 23.2 pg (26.0-34.0); MEAN CORPUSCULAR HGB CONC 32.1 G/dL (31.0-37.0); MEAN CORPUSCULAR VOLUME 72 fL (80-100); MONOCYTES # (AUTO) 0.8 K/uL (0.1-1.0); MONOCYTES % (AUTO) 5.9 % (2.0-9.0); NEUTROPHILS # (AUTO) 11.6 K/uL (1.8-7.7); PLATELET COUNT (AUTO) 197 K/uL (150-450); POTASSIUM 3.9 mmol/L (3.5-5.1); RED BLOOD CELL COUNT(AUTO) 6.16 MIL/uL (4.00-5.20); RED CELL DISTRIBUTION WIDTH 17.9 % (11.5-14.5); SODIUM SERUM 135 mmol/L (136-145); UREA NITROGEN, BLOOD 37 mg/dL (7-18)
[2017-10-15] MEDS: MethylPREDNISolone SOD SUCC 125 MG/2 ML VIAL IVP SCH ×3 (06:24→18:27)
[2017-10-15] MEDS: LEVOTHYROXINE SODIUM 75 MCG TABLET PO SCH (06:24)
[2017-10-15 06:35] LABS: NEUTROPHILS % (AUTO) 91.3 % (40.0-70.0)
[2017-10-15] MEDS: FLUTICASONE/VILANTEROL 200-25 MCG/INH INHALER [14] IH SCH (08:33)
[2017-10-15] MEDS: BECLOMETHASONE DIPR HFA 40 MCG/PUFF 10.6 GM INHALER IH SCH ×2 (08:33→19:53)
[2017-10-15] MEDS: TIOTROPIUM BROMIDE 18 MCG/INH HANDIHALER [5] IH SCH (08:34)
[2017-10-15] MEDS: ASPIRIN 81 MG EC TABLET PO SCH (08:35)
[2017-10-15] MEDS: AmLODIPine BESYLATE 10 MG TABLET PO SCH (08:35)
[2017-10-15] MEDS: PANTOPRAZOLE SODIUM 40 MG DR TABLET PO SCH (08:35)
[2017-10-15] MEDS: HEPARIN SODIUM,PORCINE 5,000 UNITS/ML VIAL SQ SCH ×2 (08:36→19:54)
[2017-10-15] MEDS: ATENOLOL 25 MG TABLET PO SCH (08:36)
[2017-10-15] MEDS: LIDOCAINE HCL 5% TRANSDERMAL PATCH TD SCH (08:36)
[2017-10-15] MEDS: AZITHROMYCIN 500 MG/NS 250 ML IV SCH (10:00)
[2017-10-15] MEDS ORDERED: CALCIUM CARBONATE 500 MG CHEWABLE TABLET CHEW ONE (18:30)
[2017-10-15] MEDS: -LIDODERM PATCH NOTE- MISC SCH (19:54)
[2017-10-16] MEDS: ALBUTEROL SULFATE 2.5 MG/0.5 ML NEB SOLUTION NEB SCH ×4 (02:09→19:31)
[2017-10-16] MEDS: IPRATROPIUM BROMIDE 0.5 MG/2.5 ML NEB SOLUTION NEB SCH ×4 (02:09→19:31)
[2017-10-16] MEDS: MethylPREDNISolone SOD SUCC 125 MG/2 ML VIAL IVP SCH ×5 (02:26→23:37)
[2017-10-16 04:13] VITALS: BP 119/68
[2017-10-16] MEDS: LEVOTHYROXINE SODIUM 75 MCG TABLET PO SCH (05:57)
[2017-10-16 07:49] VITALS: BP 122/93
[2017-10-16] MEDS: ASPIRIN 81 MG EC TABLET PO SCH (08:19)
[2017-10-16] MEDS: HEPARIN SODIUM,PORCINE 5,000 UNITS/ML VIAL SQ SCH ×2 (08:19→20:03)
[2017-10-16] MEDS: AmLODIPine BESYLATE 10 MG TABLET PO SCH (08:20)
[2017-10-16] MEDS: ATENOLOL 25 MG TABLET PO SCH (08:20)
[2017-10-16] MEDS: PANTOPRAZOLE SODIUM 40 MG DR TABLET PO SCH (08:20)
[2017-10-16] MEDS: TIOTROPIUM BROMIDE 18 MCG/INH HANDIHALER [5] IH SCH (08:22)
[2017-10-16] MEDS: BECLOMETHASONE DIPR HFA 40 MCG/PUFF 10.6 GM INHALER IH SCH ×2 (08:24→20:03)
[2017-10-16] MEDS: FLUTICASONE/VILANTEROL 200-25 MCG/INH INHALER [14] IH SCH (08:24)
[2017-10-16] MEDS: LIDOCAINE HCL 5% TRANSDERMAL PATCH TD SCH (09:00)
[2017-10-16 11:41] VITALS: BP 109/73
[2017-10-16 15:46] VITALS: BP 133/78
[2017-10-16 19:36] VITALS: BP 121/74
[2017-10-16] MEDS: -LIDODERM PATCH NOTE- MISC SCH (20:06)
[2017-10-16 23:05] VITALS: BP 121/70
[2017-10-16] MEDS: ACETAMINOPHEN 325 MG TABLET PO PRN (23:38)
[2017-10-17] MEDS: IPRATROPIUM BROMIDE 0.5 MG/2.5 ML NEB SOLUTION NEB SCH ×4 (02:15→20:54)
[2017-10-17] MEDS: ALBUTEROL SULFATE 2.5 MG/0.5 ML NEB SOLUTION NEB SCH ×4 (02:15→20:54)
[2017-10-17 04:07] VITALS: BP 130/71
[2017-10-17] MEDS: MethylPREDNISolone SOD SUCC 125 MG/2 ML VIAL IVP SCH (05:31)
[2017-10-17] MEDS: LEVOTHYROXINE SODIUM 75 MCG TABLET PO SCH (05:32)
[2017-10-17 06:36] LABS: ANION GAP 7 mmol/L (8-16); CALCIUM, TOTAL 8.1 mg/dL (8.8-10.5); CARBON DIOXIDE 27 mmol/L (22-29); CHLORIDE 103 mmol/L (98-107); CREATININE 0.92 mg/dL (0.60-1.30); GLOMERULAR FILTR. RATE CALC > 60 mL/min (>60); GLUCOSE,RANDOM 172 mg/dL (70-110); PHOSPHORUS 2.6 mg/dL (2.5-4.9); POTASSIUM 3.9 mmol/L (3.5-5.1); SODIUM SERUM 137 mmol/L (136-145); UREA NITROGEN, BLOOD 31 mg/dL (7-18)
[2017-10-17 07:35] VITALS: BP 127/79
[2017-10-17] MEDS: FLUTICASONE/VILANTEROL 200-25 MCG/INH INHALER [14] IH SCH (08:09)
[2017-10-17] MEDS: TIOTROPIUM BROMIDE 18 MCG/INH HANDIHALER [5] IH SCH (08:10)
[2017-10-17] MEDS: BECLOMETHASONE DIPR HFA 40 MCG/PUFF 10.6 GM INHALER IH SCH ×2 (08:11→21:20)
[2017-10-17] MEDS: ASPIRIN 81 MG EC TABLET PO SCH (08:11)
[2017-10-17] MEDS: PANTOPRAZOLE SODIUM 40 MG DR TABLET PO SCH (08:12)
[2017-10-17] MEDS: ATENOLOL 25 MG TABLET PO SCH (08:12)
[2017-10-17] MEDS: HEPARIN SODIUM,PORCINE 5,000 UNITS/ML VIAL SQ SCH ×2 (08:12→21:00)
[2017-10-17] MEDS: LIDOCAINE HCL 5% TRANSDERMAL PATCH TD SCH (08:13)
[2017-10-17] MEDS: AmLODIPine BESYLATE 10 MG TABLET PO SCH (08:13)
[2017-10-17 11:32] VITALS: BP 134/79
[2017-10-17] MEDS: MethylPREDNISolone SOD SUCC 40 MG/ML VIAL IVP SCH ×3 (12:19→23:54)
[2017-10-17 16:11] VITALS: BP 120/78
[2017-10-17 19:58] VITALS: BP 130/75
[2017-10-17] MEDS: METOPROLOL TARTRATE 25 MG TABLET PO SCH (21:18)
[2017-10-17] MEDS: ACETAMINOPHEN 325 MG TABLET PO PRN (21:18)
[2017-10-17] MEDS: -LIDODERM PATCH NOTE- MISC SCH (21:19)
[2017-10-17 23:26] VITALS: BP 131/77
[2017-10-18] VITALS (7 sets, daily range): BP systolic 127–142; BP diastolic 74–92
[2017-10-18] MEDS: ALBUTEROL SULFATE 2.5 MG/0.5 ML NEB SOLUTION NEB SCH ×4 (02:03→19:42)
[2017-10-18] MEDS: IPRATROPIUM BROMIDE 0.5 MG/2.5 ML NEB SOLUTION NEB SCH ×4 (02:03→19:42)
[2017-10-18] MEDS: LEVOTHYROXINE SODIUM 75 MCG TABLET PO SCH (06:01)
[2017-10-18] MEDS: MethylPREDNISolone SOD SUCC 40 MG/ML VIAL IVP SCH (06:01)
[2017-10-18 06:55] LABS: ANION GAP 8 mmol/L (8-16); CALCIUM, TOTAL 7.9 mg/dL (8.8-10.5); CARBON DIOXIDE 26 mmol/L (22-29); CHLORIDE 104 mmol/L (98-107); CREATININE 0.86 mg/dL (0.60-1.30); GLOMERULAR FILTR. RATE CALC > 60 mL/min (>60); GLUCOSE,RANDOM 174 mg/dL (70-110); PHOSPHORUS 2.5 mg/dL (2.5-4.9); POTASSIUM 3.7 mmol/L (3.5-5.1); SODIUM SERUM 138 mmol/L (136-145); UREA NITROGEN, BLOOD 34 mg/dL (7-18)
[2017-10-18] MEDS: PANTOPRAZOLE SODIUM 40 MG DR TABLET PO SCH (08:21)
[2017-10-18] MEDS: METOPROLOL TARTRATE 25 MG TABLET PO SCH ×2 (08:21→20:18)
[2017-10-18] MEDS: ASPIRIN 81 MG EC TABLET PO SCH (08:22)
[2017-10-18] MEDS: TIOTROPIUM BROMIDE 18 MCG/INH HANDIHALER [5] IH SCH (08:22)
[2017-10-18] MEDS: FLUTICASONE/VILANTEROL 200-25 MCG/INH INHALER [14] IH SCH (08:22)
[2017-10-18] MEDS: BECLOMETHASONE DIPR HFA 40 MCG/PUFF 10.6 GM INHALER IH SCH ×2 (08:23→20:18)
[2017-10-18] MEDS: LIDOCAINE HCL 5% TRANSDERMAL PATCH TD SCH (08:23)
[2017-10-18] MEDS: HEPARIN SODIUM,PORCINE 5,000 UNITS/ML VIAL SQ SCH ×2 (08:23→20:18)
[2017-10-18] MEDS: PredniSONE 20 MG TABLET PO SCH (10:20)
[2017-10-18] MEDS: MAGNESIUM OXIDE 400 MG TABLET PO PRN ×3 (10:37→20:18)
[2017-10-18] MEDS: MAGNESIUM HYDROXIDE SUSPENSION 30 ML UDCUP PO PRN (10:37)
[2017-10-18] MEDS: -LIDODERM PATCH NOTE- MISC SCH (21:00)
[2017-10-19] MEDS: ACETAMINOPHEN 325 MG TABLET PO PRN (00:07)
[2017-10-19] MEDS: ALBUTEROL SULFATE 2.5 MG/0.5 ML NEB SOLUTION NEB SCH ×2 (02:31→09:36)
[2017-10-19] MEDS: IPRATROPIUM BROMIDE 0.5 MG/2.5 ML NEB SOLUTION NEB SCH ×2 (02:31→09:36)
[2017-10-19 04:36] VITALS: BP 128/73
[2017-10-19] MEDS: LEVOTHYROXINE SODIUM 75 MCG TABLET PO SCH (06:14)
[2017-10-19 08:00] VITALS: BP 130/81
[2017-10-19] MEDS: TIOTROPIUM BROMIDE 18 MCG/INH HANDIHALER [5] IH SCH (08:33)
[2017-10-19] MEDS: BECLOMETHASONE DIPR HFA 40 MCG/PUFF 10.6 GM INHALER IH SCH (08:33)
[2017-10-19] MEDS: FLUTICASONE/VILANTEROL 200-25 MCG/INH INHALER [14] IH SCH (08:33)
[2017-10-19] MEDS: PredniSONE 20 MG TABLET PO SCH (08:34)
[2017-10-19] MEDS: ASPIRIN 81 MG EC TABLET PO SCH (08:34)
[2017-10-19] MEDS: PANTOPRAZOLE SODIUM 40 MG DR TABLET PO SCH (08:34)
[2017-10-19] MEDS: HEPARIN SODIUM,PORCINE 5,000 UNITS/ML VIAL SQ SCH (08:35)
[2017-10-19] MEDS: METOPROLOL TARTRATE 25 MG TABLET PO SCH (08:35)
[2017-10-19] MEDS: LIDOCAINE HCL 5% TRANSDERMAL PATCH TD SCH (08:35)
[2017-10-19] MEDS ORDERED: CALCIUM CARBONATE 500 MG CHEWABLE TABLET CHEW ONE (10:30)
[2017-10-19] MEDS ORDERED: ASPI-1182 PO (11:00)
[2017-10-19] MEDS ORDERED: METO25 PO ×2 (11:01→11:08)
[2017-10-19] MEDS ORDERED: PRED20 PO (11:02)
[2017-10-19] MEDS ORDERED: PRED5 PO (11:03)
[2017-10-19] MEDS ORDERED: PRED10 PO (11:03)
[2017-10-19] MEDS ORDERED: OMEP20 PO (11:04)
[2017-10-19] MEDS ORDERED: FURO20 PO (11:05)
[2017-10-19] MEDS ORDERED: BECL10.6 IH (11:06)
== END 2017-10-19 13:19 | disposition home or self-care (01) | DRG 291 ==
LOC: EMS 16:20 → ICU 20:41 → 5S 10-15 10:45 → 6N 10-18 11:00
PROVIDERS: ADMIT Internal Medicine; ATTEND Internal Medicine
PROC: 05HB33Z Insertion of Infusion Device into Right Basilic Vein, Percutaneous Approach (ICD-10-PCS; principal; 2017-10-11)
PROC: B54MZZA Ultrasonography of Right Upper Extremity Veins, Guidance (ICD-10-PCS; 2017-10-11)
DX: I11.0 Hypertensive heart disease with heart failure (principal); J96.01 Acute respiratory failure with hypoxia; E87.1 Hypo-osmolality and hyponatremia; E87.2 Acidosis; J45.901 Unspecified asthma with (acute) exacerbation; J47.1 Bronchiectasis with (acute) exacerbation; N17.9 Acute kidney failure, unspecified; E03.9 Hypothyroidism, unspecified; I50.41 Acute combined systolic (congestive) and diastolic (congestive) heart failure; E87.6 Hypokalemia; K21.9 Gastro-esophageal reflux disease without esophagitis; E83.51 Hypocalcemia; G89.29 Other chronic pain; I07.1 Rheumatic tricuspid insufficiency; M54.9 Dorsalgia, unspecified; E78.5 Hyperlipidemia, unspecified; J43.9 Emphysema, unspecified; I25.10 Atherosclerotic heart disease of native coronary artery without angina pectoris; I27.20 Pulmonary hypertension, unspecified; Z87.891 Personal history of nicotine dependence; Z99.81 Dependence on supplemental oxygen; Z88.0 Allergy status to penicillin; Z79.82 Long term (current) use of aspirin; Z79.899 Other long term (current) drug therapy
CPT/HCPCS: 36245; 36569; 71275; 76770; 76937; 82436; 82570; 82805; 83036; 83605; 83735; 84100; 84132; 84133; 84156; 84300; 85379; 87081; 87086; 93005; 93306; 94640; 94660; 96374; 97116; 97162; 97530; 99291; J0456; J1644; J1940; J2270; J2920; J2930; J3480; J3490; J3535; J7050

== ENCOUNTER 2017-10-26 11:51 | Inpatient (IN) | payer MEDICARE, MEDICAID ==
[~2017-10-26] VITALS: Ht 152.4 cm; Wt 69.9 kg
[~2017-10-26 11:51] MED LIST changes: -AMLO-512 PO; +ASPI-1182 PO; -ASPI81TA42 PO; -ATEN100T PO; +BECL10.6 IH; +FURO20 PO; -HYDR25TA PO; +METO25 PO; +OMEP20 PO; +PRED10 PO; +PRED20 PO; +PRED5 PO; +TIOT185 IH
[2017-10-26 13:07] LABS: BASOPHILS % (AUTO) 0.4 % (0.0-2.0); EOSINOPHILS % (AUTO) 0.3 % (1.0-6.0); HEMATOCRIT 44.9 % (36-46); HEMOGLOBIN 14.1 g/dL (12.0-16.0); LYMPHOCYTES # (AUTO) 0.7 K/uL (1.0-4.8); LYMPHOCYTES % (AUTO) 4.7 % (22.0-44.0); MEAN CORPUSCULAR HEMOGLOBIN 23.1 pg (26.0-34.0); MEAN CORPUSCULAR HGB CONC 31.3 G/dL (31.0-37.0); MEAN CORPUSCULAR VOLUME 74 fL (80-100); MONOCYTES # (AUTO) 0.4 K/uL (0.1-1.0); MONOCYTES % (AUTO) 2.6 % (2.0-9.0); NEUTROPHILS # (AUTO) 13.8 K/uL (1.8-7.7); PLATELET COUNT (AUTO) 112 K/uL (150-450); RED CELL DISTRIBUTION WIDTH 17.6 % (11.5-14.5)
[2017-10-26 13:20] LABS: INR 1.2 (0.9-1.1)
[2017-10-26 13:27] LABS: B-TYPE NATRIURETIC PEPTIDE 1600 pg/mL (0-100)
[2017-10-26 13:43] LABS: ALANINE AMINOTRANSFERASE 122 U/L (12-78); ALBUMIN 3.1 g/dL (3.4-5.0); ALKALINE PHOSPHATASE 290 U/L (46-116); ANION GAP 13 mmol/L (8-16); ASPARTATE AMINOTRANSFERASE 97 U/L (15-37); BILIRUBIN,TOTAL 1.3 mg/dL (0.1-1.0); CALCIUM, TOTAL 7.8 mg/dL (8.8-10.5); CARBON DIOXIDE 24 mmol/L (22-29); CHLORIDE 108 mmol/L (98-107); CKMB RELATIVE INDEX 5.1 % (0.0-4.0); CREATINE KINASE MB 5.4 ng/mL (0-5); CREATINE KINASE, TOTAL 106 U/L (26-192); CREATININE 1.11 mg/dL (0.60-1.30); GLOMERULAR FILTR. RATE CALC > 60 mL/min (>60); GLUCOSE,RANDOM 125 mg/dL (70-110); SODIUM SERUM 145 mmol/L (136-145); TOTAL PROTEIN, SERUM 5.9 g/dL (6.4-8.2); UREA NITROGEN, BLOOD 23 mg/dL (7-18)
[2017-10-26 13:51] LABS: POTASSIUM 2.7 mmol/L (3.5-5.1)
[2017-10-26] MEDS ORDERED: OxyCODONE HCL/ACETAMINOPHEN 5-325 MG TABLET PO PRN (14:15)
[2017-10-26] MEDS ORDERED: POTASSIUM CHLORIDE 20 MEQ ER TABLET PO PRN (14:15)
[2017-10-26] MEDS ORDERED: MAGNESIUM HYDROXIDE SUSPENSION 30 ML UDCUP PO PRN (14:15)
[2017-10-26] MEDS ORDERED: ACETAMINOPHEN 325 MG TABLET PO PRN (14:15)
[2017-10-26 14:55] LABS: THYROID STIMULATING HORMONE 1.53 uIU/mL (0.36-3.74)
[2017-10-26] MEDS: FUROSEMIDE 20 MG/2 ML VIAL IVP SCH ×2 (15:11→21:57)
[2017-10-26] MEDS ORDERED: NITROGLYCERIN 2% (1 GM=INCH) PACKET TP ONE (15:15)
[2017-10-26] MEDS ORDERED: POTASSIUM CHLORIDE 20 MEQ ER TABLET PO ONE (15:15)
[2017-10-26] MEDS ORDERED: LEVOFLOXACIN 500 MG/D5% WATER 100 ML IV ONE (15:15)
[2017-10-26 15:36] LABS: APPEARANCE,URINE CLEAR (CLEAR); BILIRUBIN,URINE NEGATIVE (NEGATIVE); GLUCOSE, URINE (UA) NEGATIVE (NEGATIVE); KETONES,URINE NEGATIVE (NEGATIVE); LEUKOCYTE ESTERASE ,URINE TRACE (NEGATIVE); NITRATE,URINE NEGATIVE (NEGATIVE); OCCULT BLOOD,URINE NEGATIVE (NEGATIVE); PROTEIN,URINE TRACE (NEGATIVE)
[2017-10-26 16:01] LABS: BACTERIA,URINE Rare /HPF (None Seen); RBC,URINE None Seen /HPF (0-2); SQUAMOUS EPITHELIAL CELL,UR Few /LPF (None Seen)
[2017-10-26 16:50] LABS: LACTIC ACID 2.6 mmol/L (0.4-2.0)
[2017-10-26] MEDS ORDERED: FUROSEMIDE 40 MG/4 ML VIAL IVP ONE (18:30)
[2017-10-26] MEDS: POTASSIUM CHL 10 MEQ/WATER 50 ML IV SCH ×2 (19:21→21:56)
[2017-10-26] MEDS ORDERED: POTASSIUM CHLORIDE 40 MEQ in SODIUM CHLORIDE 0.9% 1,000 ML IV SCH (19:45)
[2017-10-26 20:12] VITALS: BP 128/93
[2017-10-26] MEDS: HEPARIN SODIUM,PORCINE 5,000 UNITS/ML VIAL SQ SCH (21:00)
[2017-10-26] MEDS: DOCUSATE SODIUM 100 MG CAPSULE PO SCH (21:00)
[2017-10-26] MEDS: METOPROLOL TARTRATE 25 MG TABLET PO SCH (22:03)
[2017-10-27] VITALS (7 sets, daily range): BP systolic 116–155; BP diastolic 70–97
[2017-10-27] MEDS: POTASSIUM CHL 10 MEQ/WATER 50 ML IV SCH ×2 (00:45→03:27)
[2017-10-27] MEDS ORDERED: SODIUM CHLORIDE 0.9% 500 ML IV ONE ×2 (02:57→10:33)
[2017-10-27 06:44] LABS: ANION GAP 10 mmol/L (8-16); CALCIUM, TOTAL 7.4 mg/dL (8.8-10.5); CARBON DIOXIDE 26 mmol/L (22-29); CHLORIDE 108 mmol/L (98-107); CREATININE 0.93 mg/dL (0.60-1.30); GLOMERULAR FILTR. RATE CALC > 60 mL/min (>60); GLUCOSE,RANDOM 70 mg/dL (70-110); SODIUM SERUM 144 mmol/L (136-145); UREA NITROGEN, BLOOD 23 mg/dL (7-18)
[2017-10-27 06:50] LABS: POTASSIUM 2.9 mmol/L (3.5-5.1)
[2017-10-27 07:03] LABS: BASOPHILS % (AUTO) 0.3 % (0.0-2.0); EOSINOPHILS % (AUTO) 0.9 % (1.0-6.0); HEMATOCRIT 42.2 % (36-46); HEMOGLOBIN 13.3 g/dL (12.0-16.0); LYMPHOCYTES # (AUTO) 2.5 K/uL (1.0-4.8); MEAN CORPUSCULAR HGB CONC 31.4 G/dL (31.0-37.0); MEAN CORPUSCULAR VOLUME 73 fL (80-100); MONOCYTES % (AUTO) 6.8 % (2.0-9.0); NEUTROPHILS # (AUTO) 10.4 K/uL (1.8-7.7); PLATELET COUNT (AUTO) 115 K/uL (150-450); RED BLOOD CELL COUNT(AUTO) 5.77 MIL/uL (4.00-5.20); RED CELL DISTRIBUTION WIDTH 17.4 % (11.5-14.5)
[2017-10-27] MEDS: PANTOPRAZOLE SODIUM 40 MG DR TABLET PO SCH (08:29)
[2017-10-27] MEDS: FUROSEMIDE 20 MG/2 ML VIAL IVP SCH ×2 (08:29→20:24)
[2017-10-27] MEDS: METOPROLOL TARTRATE 25 MG TABLET PO SCH ×2 (08:29→20:24)
[2017-10-27] MEDS: HEPARIN SODIUM,PORCINE 5,000 UNITS/ML VIAL SQ SCH ×2 (08:29→20:34)
[2017-10-27] MEDS: ASPIRIN 81 MG CHEWABLE TABLET PO SCH (08:30)
[2017-10-27] MEDS: DOCUSATE SODIUM 100 MG CAPSULE PO SCH ×2 (08:30→20:24)
[2017-10-27] MEDS: POTASSIUM CHL 10 MEQ/WATER 50 ML IV PRN ×4 (08:30→18:11)
[2017-10-27] MEDS: POTASSIUM CHLORIDE 20 MEQ ER TABLET PO SCH ×2 (10:34→20:24)
[2017-10-27] MEDS: LEVOFLOXACIN 500 MG/D5% WATER 100 ML IV SCH (12:03)
[2017-10-28 04:53] VITALS: BP 134/93
[2017-10-28 06:39] LABS: BASOPHILS % (AUTO) 0.5 % (0.0-2.0); EOSINOPHILS % (AUTO) 1.8 % (1.0-6.0); HEMATOCRIT 42.9 % (36-46); HEMOGLOBIN 13.4 g/dL (12.0-16.0); LYMPHOCYTES # (AUTO) 2.2 K/uL (1.0-4.8); LYMPHOCYTES % (AUTO) 20.4 % (22.0-44.0); MEAN CORPUSCULAR HEMOGLOBIN 22.7 pg (26.0-34.0); MEAN CORPUSCULAR HGB CONC 31.1 G/dL (31.0-37.0); MEAN CORPUSCULAR VOLUME 73 fL (80-100); MONOCYTES # (AUTO) 0.6 K/uL (0.1-1.0); MONOCYTES % (AUTO) 5.5 % (2.0-9.0); NEUTROPHILS # (AUTO) 7.7 K/uL (1.8-7.7); NEUTROPHILS % (AUTO) 71.8 % (40.0-70.0); PLATELET COUNT (AUTO) 127 K/uL (150-450); RED BLOOD CELL COUNT(AUTO) 5.87 MIL/uL (4.00-5.20); RED CELL DISTRIBUTION WIDTH 17.9 % (11.5-14.5)
[2017-10-28 07:29] VITALS: BP 163/101
[2017-10-28 07:53] LABS: ALANINE AMINOTRANSFERASE 89 U/L (12-78); ALBUMIN 2.8 g/dL (3.4-5.0); ALKALINE PHOSPHATASE 215 U/L (46-116); ANION GAP 10 mmol/L (8-16); ASPARTATE AMINOTRANSFERASE 36 U/L (15-37); BILIRUBIN,TOTAL 1.6 mg/dL (0.1-1.0); CALCIUM, TOTAL 7.8 mg/dL (8.8-10.5); CARBON DIOXIDE 24 mmol/L (22-29); CHLORIDE 108 mmol/L (98-107); CREATININE 1.05 mg/dL (0.60-1.30); GLOMERULAR FILTR. RATE CALC > 60 mL/min (>60); GLUCOSE,RANDOM 78 mg/dL (70-110); POTASSIUM 3.4 mmol/L (3.5-5.1); SODIUM SERUM 142 mmol/L (136-145); TOTAL PROTEIN, SERUM 5.3 g/dL (6.4-8.2); UREA NITROGEN, BLOOD 23 mg/dL (7-18)
[2017-10-28] MEDS: METOPROLOL TARTRATE 25 MG TABLET PO SCH (08:00)
[2017-10-28] MEDS: HEPARIN SODIUM,PORCINE 5,000 UNITS/ML VIAL SQ SCH (08:00)
[2017-10-28] MEDS: FUROSEMIDE 20 MG/2 ML VIAL IVP SCH (08:00)
[2017-10-28] MEDS: DOCUSATE SODIUM 100 MG CAPSULE PO SCH (08:01)
[2017-10-28] MEDS: ASPIRIN 81 MG CHEWABLE TABLET PO SCH (08:01)
[2017-10-28] MEDS: POTASSIUM CHLORIDE 20 MEQ ER TABLET PO SCH (08:01)
[2017-10-28] MEDS: PANTOPRAZOLE SODIUM 40 MG DR TABLET PO SCH (08:01)
[2017-10-28 11:43] VITALS: BP 120/85
[2017-10-28] MEDS: LEVOFLOXACIN 500 MG/D5% WATER 100 ML IV SCH (11:50)
[2017-10-28 15:55] VITALS: BP 131/86
[2017-10-28] MEDS ORDERED: METO25 PO (16:58)
[2017-10-28] MEDS ORDERED: FURO-152 PO (16:58)
[2017-10-28] MEDS ORDERED: POTA20TA82 PO (16:58)
[2017-10-28] MEDS ORDERED: LEVO500T89 PO (17:00)
== END 2017-10-28 17:15 | disposition home or self-care (01) | DRG 291 ==
LOC: EMS 11:51 → 5S 15:01
PROVIDERS: ADMIT Internal Medicine; ATTEND Internal Medicine
PROC: 5A09357 Assistance with Respiratory Ventilation, Less than 24 Consecutive Hours, Continuous Positive Airway Pressure (ICD-10-PCS; principal; 2017-10-26)
DX: I11.0 Hypertensive heart disease with heart failure (principal); J18.9 Pneumonia, unspecified organism; J44.0 Chronic obstructive pulmonary disease with (acute) lower respiratory infection; E03.9 Hypothyroidism, unspecified; I50.33 Acute on chronic diastolic (congestive) heart failure; E87.6 Hypokalemia; I07.1 Rheumatic tricuspid insufficiency; R74.9 Abnormal serum enzyme level, unspecified; K21.9 Gastro-esophageal reflux disease without esophagitis; Z87.891 Personal history of nicotine dependence; Z91.19 Patient's noncompliance with other medical treatment and regimen; Z88.0 Allergy status to penicillin; Z79.82 Long term (current) use of aspirin; Z79.899 Other long term (current) drug therapy
CPT/HCPCS: 83605; 84132; 84443; 87040; 87081; 93005; 94660; 96365; 96375; 99285; J1644; J1940; J1956; J3480; J7030; J7040